=== PATIENT | female | born 1960 | race African-American/Black ===

== ENCOUNTER 2019-01-18 13:26 | Emergency (ER) | payer MEDICARE, OTHER ==
[~2019-01-18] VITALS: Ht 170.2 cm; Wt 108.9 kg
[~2019-01-18 13:26] MED LIST: CELEBREX200 MG ORAL; DOXYCYCLINE MO100 MG ORAL; HYDROCHLOROTHIA25 MG ORAL; METFORMIN HCL1000 M1 ORAL; PROMETHAZINE-C118 M1 ORAL
[2019-01-18 13:42] VITALS: BP 126/84
--- NOTE | 2019-01-18 13:47 | NUR ---
ED Nurse Note: Patient presents to ER due to cough, headache, chills for the past few days. Reports no N/V or D. Patient in electric wheelchair. Skin warm with good skin turgor.
--- NOTE | 2019-01-18 14:07 | NUR ---
ED Nurse Note: Patient awake, alert, oriented x 4. Equal hand resource center teacher notes. Reports no dizziness or drowsiness.
[2019-01-18] MEDS ORDERED: Albuterol/Ipratropium 3ml neb HHN ONE (14:30)
--- NOTE | 2019-01-18 14:42 | Diagnostic Imaging Report ---
Indication: Headache Technique: Contiguous 5 mm thick transaxial imaging of the head obtained in a Siemens Sensation [address] scanner. Soft tissue and bone windows generated. Automatic Exposure Control was utilized. Total Dose length Product (DLP): 1403.[address] Dose Index Volume (CTDIvol): 70.38 mGy Comparison: none Findings: The size and configuration of the cortical sulci, basal cisterns, and ventricles are within normal limits for age. There is no mass effect, midline shift, or edema identified. There is no evidence of acute hemorrhage or abnormal intra-axial or extra-axial fluid collections. The bones and soft tissues are unremarkable. Impression: No mass effect, edema or acute bleed. The CT scanner at [facility] [place] is accredited by the [employer] and the scans are performed using dose optimization techniques as appropriate to a performed exam including Automatic Exposure control.
[2019-01-18] MEDS ORDERED: TYLENOL EXTRA500 MG ORAL (15:26)
[2019-01-18] MEDS ORDERED: AMOXICILLIN500 MG ORAL (15:26)
[2019-01-18] MEDS ORDERED: PROAIR RESPICL90 MCG IH (15:26)
[2019-01-18] MEDS ORDERED: PROMETHAZINE-C118 M1 ORAL (15:26)
[2019-01-18 15:35] VITALS: BP 152/94
--- NOTE | 2019-01-18 15:35 | NUR ---
ED Nurse Note: Patient cleared to be d/c per ERMD. D/C instruction and prescription provided. Patient education done via discussion and handout, Patient verbalized understanding and agrees with plan. Patient leaving ER in electric wheelchair with her belongings. Wristband removed.
--- NOTE | 2019-01-18 16:17 | Emergency Room Report ---
History of Present Illness General Chief Complaint: Upper Respiratory Illness Source: Patient Present Illness HPI 58-year-old female presents ED for evaluation. Patient complaining of cough and congestion 5 days. History of COPD. Cough is productive with yellowish phlegm. Also complaining of headache. Sharp, right-sided, 8 out of 10, nonradiating. Denies photophobia or blurry vision. Denies nausea or vomiting. Denies neck Stiffness. Denies sick contacts or recent travel. No other aggravating relieving factors. Denies any other associated symptoms Allergies: Coded Allergies: PREDNISONE (Verified Allergy, Unknown, 12/08/18) Patient History Past Medical History: DM, HTN, asthma Past Surgical History: none Pertinent Family History: none Social History: Denies: smoking, alcohol use, drug use Last Menstrual Period: na Now: No Immunizations: UTD Reviewed Nursing Documentation: PMH: Agreed; PSxH: Agreed Nursing Documentation-PMH Past Medical History: No History, Except For Hx Hypertension: Yes Hx Asthma: Yes Hx Diabetes: Yes Review of Systems All Other Systems: negative except mentioned in HPI Physical Exam Vital Signs Date Time Temp Pulse Resp B/P (MAP) Pulse Ox O2 Delivery O2 Flow Rate FiO2 01/18/19 13:42 98.8 20 126/84 99 Room Air 01/18/19 13:42 67 01/18/19 14:37 21 Sp02 EP Interpretation: reviewed, normal General Appearance: no apparent distress, alert, GCS 15, non-toxic Head: normocephalic, atraumatic Eyes: bilateral eye normal inspection, bilateral eye PERRL ENT: hearing grossly normal, normal pharynx, no angioedema, normal voice Neck: full range of motion, supple, no meningismus, supple/symm/no masses Respiratory: chest non-tender, speaking full sentences, wheezing Cardiovascular #1: regular rate, rhythm, no edema Cardiovascular #2: 2+ carotid (R), 2+ carotid (L), 2+ radial (R), 2+ radial (L) , 2+ dorsalis pedis (R), 2+ dorsalis pedis (L) Gastrointestinal: normal bowel sounds, non tender, soft, non-distended, no guarding, no rebound Rectal: deferred Genitourinary: normal inspection, no CVA tenderness Musculoskeletal: back normal, gait/station normal, normal range of motion, non- tender Neurologic: alert, oriented x3, responsive, motor strength/tone normal, sensory intact, speech normal Psychiatric: judgement/insight normal, memory normal, mood/affect normal, no suicidal/homicidal ideation Reflexes: 3+ bicep (R), 3+ bicep (L), 3+ tricep (R), 3+ tricep (L), 3+ knee (R) , 3+ knee (L) Skin: normal color, no rash, warm/dry, well hydrated Lymphatic: no adenopathy Medical Decision Making Diagnostic Impression: Primary Impression: Headache Qualified Codes: R51 - Headache Additional Impression: COPD (chronic obstructive pulmonary disease) Qualified Codes: J44.9 - Chronic obstructive pulmonary disease, unspecified ER Course Hospital Course 58-year-old female presents to ED complaining of cough, SOB, headache Differential diagnoses include: URI, bronchitis, asthma/COPD, pneumonia Clinical course Patient placed on stretcher. After initial history and physical I ordered CT head and nebulizer treatment. CT head unremarkable. No meningeal signs. Cranial nerves II through XII intact. No focal deficits. Reassurance given Upon reassessment patient states cough and symptoms have improved. Findings consistent with bronchitis. Given history of COPD we'll discharge with antibiotics Discussed findings with patient. States she's had similar episode of headache several years ago and had MRI done which was negative. I explained to patient that she would likely benefit from neurology outpatient evaluation. States she will follow-up with her PMD Diagnosis - headache, COPD Stable and discharged home with prescriptions for Rx albuterol, proemthazine/ codeine, amoxicillin. Instructed to followup with PMD. Return to ED if symptoms recur or worsen CT/MRI/US Diagnostic Results CT/MRI/US Diagnostic Results : Imaging Test Ordered: CT Head Impression no acute process Last Vital Signs Date Time Temp Pulse Resp B/P (MAP) Pulse Ox O2 Delivery O2 Flow Rate FiO2 01/18/19 15:35 98.6 73 14 152/94 95 Room Air 01/18/19 14:45 21 Status: improved Disposition: HOME, SELF-CARE Condition: Stable Scripts Acetaminophen* (TYLENOL EXTRA STRENGTH*) 500 Mg Tablet 500 MG ORAL Q8H PRN for Prn Headache/Temp > 101, #30 TAB 0 Refills Prov: Soy Alejandra MD 01/18/19 Amoxicillin* (AMOXIL*) 500 Mg Capsule 500 MG ORAL THREE TIMES A DAY, #21 CAP Prov: Soy Alejandra MD 01/18/19 Codeine/Promethazine Hcl* (PROMETHAZINE-CODEINE SYRUP*) 118 Ml Syrup 5 ML ORAL Q6H PRN for For Cough, #118 ML 0 Refills Prov: Soy Alejandra MD 01/18/19 Albuterol Sulfate (Proair Respiclick) 90 Mcg Aer.pow.ba 90 MCG IH Q6HR, #1 UNIT Prov: Soy Alejandra MD 01/18/19 Referrals: NON PHYSICIAN (PCP) [facility]ira [facility]. [facility] Patient Instructions: Chronic Obstructive Pulmonary Disease Exacerbation, Easy- to-Read Soy Alejandra MD Jan 18, 2019 16:17
== END 2019-01-18 15:35 | disposition home or self-care (01) ==
LOC: EMR 14:25
DX: R51 Headache (principal); J44.9 Chronic obstructive pulmonary disease, unspecified; E11.9 Type 2 diabetes mellitus without complications; I10 Essential (primary) hypertension
CPT/HCPCS: 70450; 94640; 99284; J7620

== ENCOUNTER 2019-03-04 14:43 | Inpatient (IN) | payer MEDICARE, OTHER ==
[~2019-03-04] VITALS: Ht 170.2 cm; Wt 104.3 kg
[2019-03-04] MEDS: Albuterol/Ipratropium 3ml neb HHN SCH (01:34)
[~2019-03-04 14:43] MED LIST changes: +AMOXICILLIN500 MG ORAL; +PROAIR RESPICL90 MCG IH; +TYLENOL EXTRA500 MG ORAL
--- NOTE | 2019-03-04 15:12 | NUR ---
ED Nurse Note: pt walked into ed c/o sob x 2 days and progressively worsen, pt states she smokes everyday. noted pt sob, tachypnea, airway intact, LS= slight diminished lower lobes, vss, e3=090% on RA, pt started on o2 via nc 2L/min for comfort, ERMD aware. will cont monitor.
[2019-03-04] MEDS ORDERED: Solu-MEDROL 125mg Inj IVP ONE (15:15)
[2019-03-04] MEDS ORDERED: Albuterol ud Inhalation HHN ONE (15:15)
[2019-03-04] MEDS ORDERED: Ipratropium 0.02% Inh Soln 2.5ml UD HHN ONE (15:15)
[2019-03-04 15:20] VITALS: BP 151/76
--- NOTE | 2019-03-04 15:37 | Emergency Room Report ---
History of Present Illness General Chief Complaint: Dyspnea/Respdistress Source: Patient Present Illness HPI Patient presents with multiple complaints. She feels short of breath. She's been coughing up phlegm that is black and yellow. She's been wheezing but hasn' t used any nebulizer at home. She still smokes a cigarette a day. In addition she'll feels confused. She also has back pain that's on the right-hand side in the lower portion of her chest. It's a sharp hot poker that she feels. She denies vomiting or diarrhea. She denies dysuria. This been no chills that she has felt feverish at home.She rates the pain 10/10. She says it hurts her to sit and lay down, changing positions. No chest pain, palpitations, nausea, vomiting, diarrhea, dysuria, abdominal pain , she is states that she is depressed visual changes, headache. Because she has chronic pain. She denies suicidal or homicidal ideation. Allergies: Coded Allergies: PREDNISONE (Verified Allergy, Unknown, 12/08/18) Patient History Past Medical History: see triage record Social History: Reports: smoking, drug use - See tox screen Social History Narrative from home Last Menstrual Period: 12/2018 Now: No : 3 Para: 3 Reviewed Nursing Documentation: PMH: Agreed; PSxH: Agreed Nursing Documentation-PMH Hx Hypertension: Yes Hx Asthma: Yes Hx Diabetes: Yes Review of Systems All Other Systems: negative except mentioned in HPI Physical Exam Vital Signs Date Time Temp Pulse Resp B/P (MAP) Pulse Ox O2 Delivery O2 Flow Rate FiO2 03/04/19 15:00 98.1 70 18 93 Room Air 03/04/19 15:20 151/76 Sp02 EP Interpretation: reviewed, normal General Appearance: well appearing, GCS 15, non-toxic, mild distress, obese Head: normocephalic, atraumatic Eyes: bilateral eye normal inspection, bilateral eye PERRL, bilateral eye EOMI ENT: moist mucus membranes Neck: supple Respiratory: decreased breath sounds, expiration - Increased expiratory phase Cardiovascular #1: regular rate, rhythm Cardiovascular #2: 2+ radial (R) Gastrointestinal: normal inspection, normal bowel sounds, non tender, no mass, non-distended Musculoskeletal: gait/station normal, normal range of motion, no calf tenderness, Brian's Sign negative, other - Back tenderness with muscle spasm Neurologic: alert, motor strength/tone normal, DTRs symmetric, sensory intact, oriented - 2 Psychiatric: anxious - And she states she feels confused Skin: normal inspection, warm/dry Medical Decision Making Diagnostic Impression: Primary Impression: COPD exacerbation Additional Impression: Substance abuse ER Course Patient presents with dyspnea back pain confusion with history of COPD. I differential includes respiratory failure, COPD exacerbation, pneumonia, acute myocardial infarction, pulmonary embolus amongst others. Patient will be evaluated with EKG, chest x-ray and labs. CO2 monitoring will be initiated. The patient will receive breathing treatments and Solu Medrol. (She states she is allergic to prednisone and it causes her to break out however we are going to give her dose of Solu-Medrol IV.) EKG sinus rhythm and normal EKG. Chest x-ray poor inspiration increased cor. CO2 monitor 25-30. Slightly better with breathing treatment. This was obtained due to concern of CO2 retention and lethargy. Sleeping. Still with relative hypoxia and wheezing. Drug screen returns. Discussed getting help for cocaine and amphetamine abuse. Discussed with patient need for seeking help. Admit to observation telemetry Dr. Casillas. Laboratory Tests Test 03/04/19 15:30 03/04/19 16:20 03/04/19 16:30 White Blood Count 6.4 K/UL (4.8-10.8) Red Blood Count 4.72 M/UL (4.20-5.40) Hemoglobin 14.2 G/DL (12.0-16.0) Hematocrit 41.1 % (37.0-47.0) Mean Corpuscular Volume 87 FL (80-99) Mean Corpuscular Hemoglobin 30.1 PG (27.0-31.0) Mean Corpuscular Hemoglobin Concent 34.6 G/DL (32.0-36.0) Red Cell Distribution Width 12.7 % (11.6-14.8) Platelet Count 180 K/UL (150-450) Mean Platelet Volume 7.2 FL (6.5-10.1) Neutrophils (%) (Auto) 63.4 % (45.0-75.0) Lymphocytes (%) (Auto) 27.1 % (20.0-45.0) Monocytes (%) (Auto) 7.4 % (1.0-10.0) Eosinophils (%) (Auto) 0.7 % (0.0-3.0) Basophils (%) (Auto) 1.5 % (0.0-2.0) Prothrombin Time 10.4 SEC (9.30-11.50) Prothrombin Time INR 1.0 (0.9-1.1) PTT 29 SEC (23-33) Sodium Level 146 MMOL/L (136-145) H Potassium Level 3.9 MMOL/L (3.5-5.1) Chloride Level 110 MMOL/L (98-107) H Carbon Dioxide Level 27 MMOL/L (21-32) Anion Gap 9 mmol/L (5-15) Blood Urea Nitrogen 12 mg/dL (7-18) Creatinine 0.9 MG/DL (0.55-1.30) Estimate Glomerular Filtration Rate > 60 mL/min (>60) Glucose Level 170 MG/DL (74-106) H Lactic Acid Level 1.60 mmol/L (0.4-2.0) Calcium Level 10.3 MG/DL (8.5-10.1) H Total Bilirubin 0.1 MG/DL (0.2-1.0) L Aspartate Amino Transferase (AST) 15 U/L (15-37) Alanine Aminotransferase (ALT) 20 U/L (12-78) Alkaline Phosphatase 102 U/L (46-116) Total Creatine Kinase 152 U/L (26-308) Troponin I 0.008 ng/mL (0.000-0.056) Pro-B-Type Natriuretic Peptide 14 pg/mL (0-125) Total Protein 7.2 G/DL (6.4-8.2) Albumin 3.3 G/DL (3.4-5.0) L Globulin 3.9 g/dL Albumin/Globulin Ratio 0.8 (1.0-2.7) L Lipase 181 U/L (73-393) Serum Alcohol < 3 mg/dL Urine Color Yellow Urine Appearance Clear Urine pH 7 (4.5-8.0) Urine Specific [place] 1.015 (1.005-1.035) Urine Protein Negative (NEGATIVE) Urine Glucose (UA) Negative (NEGATIVE) Urine Ketones Negative (NEGATIVE) Urine Blood Negative (NEGATIVE) Urine Nitrite Negative (NEGATIVE) Urine Bilirubin Negative (NEGATIVE) Urine Urobilinogen 4 MG/DL (0.0-1.0) H Urine Leukocyte Esterase Negative (NEGATIVE) Urine Opiates Screen Negative (NEGATIVE) Urine Barbiturates Screen Negative (NEGATIVE) Phencyclidine (PCP) Screen Negative (NEGATIVE) Urine Amphetamines Screen Positive (NEGATIVE) H Urine Benzodiazepines Screen Negative (NEGATIVE) Urine Cocaine Screen Positive (NEGATIVE) H Urine Marijuana (THC) Screen Positive (NEGATIVE) H EKG Diagnostic Results Rate: normal Rhythm: NSR ST Segments: no acute changes Rhythm Strip Diag. Results EP Interpretation: yes Rhythm: NSR, no PVC's, no ectopy Chest X-Ray Diagnostic Results Chest X-Ray Diagnostic Results : Chest X-Ray Ordered: Yes # of Views/Limited/Complete: 1 View Indication: Shortness of Breath EP Interpretation: Yes Interpretation: no effusion, no pneumothorax, other - Poor inspiratory film and increased cardiac silhouette Impression: Other Electronically Signed by: Electronically signed by Simon Brock MD Last Vital Signs Date Time Temp Pulse Resp B/P (MAP) Pulse Ox O2 Delivery O2 Flow Rate FiO2 03/04/19 23:09 172/99 03/04/19 20:31 Room Air 03/04/19 20:00 96.7 89 18 95 03/04/19 15:42 2.0 Status: improved Disposition: PLACE IN OBSERVATION Condition: Serious Simon Brock MD March 04, 2019 15:37
[2019-03-04 16:04] LABS: ANION GAP 9 mmol/L (5-15); BLOOD UREA NITROGEN 12 mg/dL (7-18); CALCIUM 10.3 MG/DL (8.5-10.1); CARBON DIOXIDE 27 MMOL/L (21-32); CHLORIDE 110 MMOL/L (98-107); CREATININE 0.9 MG/DL (0.55-1.30); POTASSIUM 3.9 MMOL/L (3.5-5.1); SODIUM 146 MMOL/L (136-145)
[2019-03-04 16:15] LABS: ALANINE AMINOTRANSFERASE 20 U/L (12-78); ALBUMIN 3.3 G/DL (3.4-5.0); ALBUMIN/GLOBULIN RATIO 0.8 (1.0-2.7); ALKALINE PHOSPHATASE 102 U/L (46-116); ASPARTATE AMINO TRANSFERASE 15 U/L (15-37); BILIRUBIN,TOTAL 0.1 MG/DL (0.2-1.0); CREATINE KINASE 152 U/L (26-308)
[2019-03-04 16:21] LABS: BASOPHILS % (AUTO) 1.5 % (0.0-2.0); EOSINOPHILS % (AUTO) 0.7 % (0.0-3.0); HEMATOCRIT 41.1 % (37.0-47.0); HEMOGLOBIN 14.2 G/DL (12.0-16.0); LYMPHOCYTES % (AUTO) 27.1 % (20.0-45.0); MEAN CORPUSCULAR VOLUME 87 FL (80-99); MONOCYTES % (AUTO) 7.4 % (1.0-10.0); NEUTROPHILS % (AUTO) 63.4 % (45.0-75.0); PLATELET COUNT 180 K/UL (150-450); RED BLOOD COUNT 4.72 M/UL (4.20-5.40); RED CELL DISTRIBUTION WIDTH 12.7 % (11.6-14.8); WHITE BLOOD COUNT 6.4 K/UL (4.8-10.8)
--- NOTE | 2019-03-04 16:30 | NUR ---
ED Nurse Note:urine sent to labs
[2019-03-04 16:58] LABS: APPEARANCE,URINE CLEAR; BILIRUBIN, URINE NEGATIVE (NEGATIVE); GLUCOSE, URINE (UA) NEGATIVE (NEGATIVE); KETONES,URINE NEGATIVE (NEGATIVE); LEUKOCYTE ESTERASE ,URINE NEGATIVE (NEGATIVE); NITRITE,URINE NEGATIVE (NEGATIVE); PH,URINE 7 (4.5-8.0); PROTEIN,URINE NEGATIVE (NEGATIVE); UROBILINOGEN,URINE 4 MG/DL (0.0-1.0)
[2019-03-04 16:59] LABS: COLOR,URINE YELLOW
[2019-03-04 18:14] VITALS: BP 148/75
--- NOTE | 2019-03-04 18:15 | NUR ---
ED Nurse Note:called report to tele- pt. is stable to transfer up stairs
[2019-03-04 18:35] VITALS: BP 160/68
--- NOTE | 2019-03-04 18:35 | NUR ---
NURSE NOTES: Pt received from NANCY Bass alert and oriented x4 with no acute s/s of distress. IV site asymptomatic and patent, on saline lock. No wounds noted upon admission. Belongings signed with transferring RN -all with patient upon transfer. Bed in lowest position, bed alarm on. call light and belongings within reach. pvc monitor on - Sinus Rhythm, 88.
--- NOTE | 2019-03-04 19:25 | NUR ---
HAND-OFF: Report given to NANCY El. No acute s/s of distress noted.
[2019-03-04 20:00] VITALS: BP 172/99
--- NOTE | 2019-03-04 20:28 | NUR ---
NURSE NOTES: Recvd report from NANCY Montelongo. Pt is awake and alert AOX4, Pt is on room air, appears to have labored breathing on room air o2 sat 95%. Pt appears to be anxious and complaining of generalized pain. Admitting orders pending. Called dr Casillas to obtain admitting orders. Will continue to monitor.
[2019-03-04] MEDS ORDERED: LORazepam 1mg tab ORAL PRN (21:45)
[2019-03-04] MEDS: cefTRIAXone 1gm/D5W 55ml IVPB SCH ×2 (23:09)
[2019-03-05] VITALS: BP 143/87
[2019-03-05] MEDS: Albuterol/Ipratropium 3ml neb HHN SCH ×6 (03:27→23:18)
[2019-03-05 04:00] VITALS: BP 123/67
--- NOTE | 2019-03-05 07:38 | NUR ---
NURSE NOTES: pt awake alert, no distress. no sob. no c/o pain. call light within reach.bed in lowest position locked. will monitor.
[2019-03-05 07:53] VITALS: BP 130/70
[2019-03-05] MEDS: Heparin 5000 units/ml inj SUBQ SCH ×2 (08:15→21:00)
--- NOTE | 2019-03-05 09:43 | NUR ---
NURSE NOTES: rel;ayjulio to md glynn prednisone allergy Dr Melendez gave order for benadryl 50 mg q6 prn . pt aware of dexamethasone due later today.
--- NOTE | 2019-03-05 10:54 | NUR ---
CASE MANAGEMENT:REVIEW 58 YR OLD FEMALE PRESENTED TO ER CC: SOB SI: COPD EXACERBATION. 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
[2019-03-05 11:03] LABS: ANION GAP 9 mmol/L (5-15); BLOOD UREA NITROGEN 12 mg/dL (7-18); CALCIUM 9.5 MG/DL (8.5-10.1); CARBON DIOXIDE 25 MMOL/L (21-32); CHLORIDE 107 MMOL/L (98-107); CREATININE 0.9 MG/DL (0.55-1.30); POTASSIUM 3.8 MMOL/L (3.5-5.1); SODIUM 141 MMOL/L (136-145)
[2019-03-05] MEDS: DiphenhydrAMINE 50mg/ml Inj IVP PRN ×2 (11:22→18:07)
--- NOTE | 2019-03-05 11:47 | Diagnostic Imaging Report ---
Indication: Dyspnea Comparison: 12/08/2018 A single view chest radiograph was obtained. Findings: Cardiomegaly is present. Vascular congestion suspected with prominent vascularity. Bones are unremarkable. IMPRESSION: CHF suspected
[2019-03-05 12:00] VITALS: BP 125/78
[2019-03-05] MEDS: Dexamethasone 4mg/ml vial IVP SCH ×2 (12:17→18:07)
--- NOTE | 2019-03-05 14:38 | NUR ---
Social Service Note SW met with patient to address positive drug screen for meth and cocaine. Patient acknowledge positive screen by laughing it off and telling SW to just go through the motions and telling her drugs kill and to stop doing drug. Patient continued to be sarcastic as SW confirmed that those were good points and inquired if patient would be receptive to community resources for substance abuse. Patient states when she is ready to stop she will, patient states she has tried treatment and it wasn't for her and wasn't receptive to resources. Patient's t [place] [phone] is her emergency contact. Patient will return home upon discharge. Will monitor and be available as needed.
[2019-03-05 16:00] VITALS: BP 126/78
--- NOTE | 2019-03-05 17:00 | History and Physical Report ---
DATE OF ADMISSION: 03/04/2019 REASON FOR ADMISSION: COPD exacerbation. HISTORY OF PRESENT ILLNESS: This is a 58-year-old female, who presents with increasing shortness of breath. The patient is a chronic smoker. Notes that, she has coughed up very dark sputum. She has been wheezing and does have a Ventolin inhaler only. She still is smoking as described. The patient has been smoking for years. The patient notes that she has a prednisone allergy, but this is years ago. The patient was given Solu-Medrol in the emergency room and had no significant ill effects. No chest pain or palpitations. No nausea or vomiting. No ill contacts. The patient is now being admitted for COPD exacerbation. PAST MEDICAL HISTORY: Notable for what is described as chronic obstructive pulmonary disease and hypertension. MEDICATIONS: Reviewed. ALLERGIES: Reviewed. REVIEW OF SYSTEMS: All 10-points reviewed and otherwise negative. PHYSICAL EXAMINATION: GENERAL: A well-developed female and comfortable. VITAL SIGNS: Blood pressure 130/70, pulse 72, respiratory rate 18, sats 92%, and temperature 96.9. HEENT: Fairly negative. NECK: Supple. No adenopathy. LUNGS: Scattered wheezes. Moderate air entry. CARDIAC: S1, S2. Regular rate and rhythm without murmurs, rubs, or gallops. ABDOMEN: Soft, obese, and nontender. EXTREMITIES: No cyanosis, clubbing, or edema. NEUROLOGIC: Grossly nonfocal. LABORATORY DATA: Otherwise reviewed. EKG normal. The patient's laboratory data CBC normal. Chemistries sodium 146, calcium 10.3, and albumin is 3.3. IMPRESSION: 1. Chronic obstructive pulmonary disease with acute exacerbation. 2. Questionable prednisone allergy. 3. Hypertension. 4. Possible hypercalcemia. 5. Hypernatremia. 6. Hypertension. RECOMMENDATIONS: Supportive care. We will start oral. We will followup laboratories after intravenous hydration. A trial of Decadron and monitor for any type of allergic reaction. Likely, we will start chronic therapy with inhaled steroid if tolerated. The patient will need outpatient pulmonary function testing and further evaluation and will need further counseling on smoking cessation. Lamberto Casillas M.D. DR: KELLI JOB#: [id number] CC:
--- NOTE | 2019-03-05 19:11 | NUR ---
HAND-OFF: Report given to LEANNA CRUZ.
--- NOTE | 2019-03-05 19:20 | NUR ---
NURSE NOTES: Received report from Samantha Ling RN. Pt is resting in the bed receiving breathing treatment by RT. IV is patent and asymptomatic, NS is running at 100ml/h. Bed is in the lowest position,side rails up x2, and breaks are engaged. Call light and side table are w/in reach. Will continue to monitor.
[2019-03-05 20:00] VITALS: BP 156/88
[2019-03-05] MEDS: cefTRIAXone 1gm/D5W 55ml IVPB SCH ×2 (22:00)
[2019-03-06] VITALS: BP 150/82
--- NOTE | 2019-03-06 | NUR ---
NURSE NOTES: Pt was assisted to repositioned and sleeping in the bed. No acute distress at this time in RA. Will continue to monitor.
[2019-03-06] MEDS: DiphenhydrAMINE 50mg/ml Inj IVP PRN ×2 (00:27→06:40)
[2019-03-06] MEDS: Dexamethasone 4mg/ml vial IVP SCH ×3 (00:30→11:59)
[2019-03-06] MEDS: Albuterol/Ipratropium 3ml neb HHN SCH ×3 (03:00→11:04)
[2019-03-06 04:00] VITALS: BP 130/81
--- NOTE | 2019-03-06 04:13 | NUR ---
NURSE NOTES: Pt refused to have new bag of IV fluid, NS at 100ml/h, scheduled at 0345 by saying that she is tired to urinate d/t receiving IV fluid. CN made aware.
--- NOTE | 2019-03-06 07:15 | NUR ---
HAND-OFF: Report given to Samantha Ling RN.
[2019-03-06 08:00] VITALS: BP 132/81
[2019-03-06] MEDS: Heparin 5000 units/ml inj SUBQ SCH (08:12)
--- NOTE | 2019-03-06 08:16 | General Progress Note ---
Assessment/Plan Assessment/Plan: IMPRESSION: 1. Chronic obstructive pulmonary disease with acute exacerbation. 2. Questionable prednisone allergy. 3. Hypertension. 4. Possible hypercalcemia. 5. Hypernatremia. 6. Hypertension. PLAN steroid taper ? outpatient inhaler management start with anoro proair prn monitor for change Subjective Allergies: Coded Allergies: PREDNISONE (Verified Allergy, Unknown, 12/08/18) Subjective improved overall care noted tolerated decadron Objective Last 24 Hour Vital Signs Date Time Temp Pulse Resp B/P (MAP) Pulse Ox O2 Delivery O2 Flow Rate FiO2 03/06/19 08:12 81 18 Room Air 21 03/06/19 08:10 78 132/81 03/06/19 08:10 81 20 96 Room Air 21.0 03/06/19 08:00 97.9 78 18 132/81 (98) 91 03/06/19 04:00 97.9 86 18 130/81 (97) 91 03/06/19 03:49 85 03/06/19 03:26 Room Air 03/06/19 03:25 Room Air 03/06/19 00:02 97 03/06/19 00:00 98.2 98 18 150/82 (104) 93 03/05/19 23:26 101 20 99 Room Air 21 03/05/19 23:18 100 18 95 Room Air 21 03/05/19 21:00 Room Air 03/05/19 20:04 99 03/05/19 20:00 98.6 99 18 156/88 (110) 92 03/05/19 19:30 95 20 97 Room Air 21 03/05/19 19:19 94 18 95 Room Air 21 03/05/19 19:19 94 18 Room Air 21 03/05/19 16:48 91 20 95 Room Air 21 03/05/19 16:33 86 20 92 Room Air 21 03/05/19 16:13 89 03/05/19 16:00 97.5 80 18 126/78 (94) 92 03/05/19 13:12 92 20 97 Room Air 21 03/05/19 12:58 72 20 93 Room Air 21 03/05/19 12:00 97.3 74 18 125/78 (94) 92 03/05/19 11:37 69 Intake and Output 03/05/19 03/06/19 18:59 06:59 Intake Total 1340 ml 905 ml Balance 1340 ml 905 ml Intake Oral 840 ml IV Total 500 ml 905 ml # Voids 3 4 Laboratory Tests 03/05/19 10:30: Sodium Level 141, Potassium Level 3.8, Chloride Level 107, Carbon Dioxide Level 25, Anion Gap 9, Blood Urea Nitrogen 12, Creatinine 0.9, Estimat Glomerular Filtration Rate > 60, Glucose Level 244H, Calcium Level 9.5 Height (Feet): 5 Height (Inches): 7.00 Weight (Pounds): 230 Objective GENERAL: A well-developed female and comfortable. HEENT: Fairly negative. NECK: Supple. No adenopathy. LUNGS: reduced wheezes. Moderate air entry. CARDIAC: S1, S2. Regular rate and rhythm without murmurs, rubs, or gallops. ABDOMEN: Soft, obese, and nontender. EXTREMITIES: No cyanosis, clubbing, or edema. NEUROLOGIC: Grossly nonfocal. Lamberto Casillas MD March 06, 2019 08:16
[2019-03-06] MEDS ORDERED: ANORO ELLIPTA1 EACH HHN ×2 (09:13→09:14)
[2019-03-06] MEDS ORDERED: ALBUTEROL2.5 MG/3 M INH (09:14)
[2019-03-06] MEDS ORDERED: ZPACK (09:14)
[2019-03-06] MEDS ORDERED: DEXAMETHAS10 MG/1 M1 IV (09:16)
[2019-03-06] MEDS ORDERED: PROMETHAZINE-C118 M1 ORAL (09:17)
[2019-03-06 11:30] VITALS: BP 130/81
--- NOTE | 2019-03-06 12:49 | NUR ---
NURSE NOTES: pt left in stable condition, w all belongings. iv on right hand 20g intact, patent. pt instructed that infusion pharmacy will contact her for decadron iv. Arie from [facility] 1999 confirmed via phone call that they will set up iv.
--- NOTE | 2019-03-06 12:50 | NUR ---
NURSE NOTES: pt provided w bus tokens
--- NOTE | 2019-03-07 08:42 | Discharge Summary ---
Discharge Summary Discharge Summary _ DATE OF ADMISSION: 03/04/2019 DATE OF DISCHARGE: 03/06/2019 DISCHARGED BY: Dr. Casillas REASON FOR ADMISSION: 58 years old female with past medical history of COPD, chronic smoker, hypertension, presented to emergency department due to increased shortness of breath. Patient reported productive cough and wheezing. Patient was only using Ventolin inhaler at home. Patient reported prednisone allergy years ago, however she was given Solu- Medrol in the emergency room and had no side effects/evidence of allergic reaction. Patient denied chest pain or palpitations. No nausea or vomiting. No recent traveling. No ill contacts. Patient was admitted for COPD with acute exacerbation. HOSPITAL COURSE: Patient admitted to telemetry floor Supplemental oxygen provided as needed to keep pulse oximetry above 90%. Pulmonary toilet provided via nebulizing therapy with bronchodilators. Patient was started on IV Decadron with close monitoring on telemetry floor for any type of side effects/allergic reaction . Benadryl was on standby as needed. Patient was started on empiric antibiotic. CXR revealed mild CHF. Pro BNP 14. Antitussive provided as needed Patient was counseled on smoking cessation Patient declined nicotine patch. Pulse oximetry was stable on room air. Troponin negative. EKG revealed sinus rhythm, no acute ischemic changes. Blood pressure was managed with calcium channel tor. Hypernatremia resolved. Urine toxicology screen was positive for marijuana , cocaine and amphetamines. gospel worker met with patient to address positive drug screen for cocaine and amphetamine. Patient acknowledged positive screen, but was not receptive to community resources . patient stated that when she will be ready , she will stop herself . patient cousneled on smoking cessatio and abstinence from the street drugs. Patient clinically stabilized and was ready for discharge home . Upon discharge, patient started on maintenance inhaler with Anoro and continue Pro-air as rescue inhaler as needed. Steroids tapered. Patient to follow-up with the aerospace technician as outpatient for pulmonary function testand for further management. FINAL DIAGNOSES: COPD with acute exacerbation Hypertension Questionable prednisone allergy Hypernatremia - resolved Polysubstance abuse/cocaine, amphetamine, marijuana Tobacco abuse DISCHARGE MEDICATIONS: See Medication Reconciliation list. DISCHARGE INSTRUCTIONS: Patient was discharged home. Follow up with primary care provider in one week. I have been assigned to dictate discharge summary for this account. I was not involved in the patient's management. Morenita Vera NP March 07, 2019 08:42
== END 2019-03-06 12:51 | disposition home or self-care (01) | DRG 191 ==
LOC: EMR 15:54 → INTOOBSV 16:13 → 2E 16:13 → UNDOADMOB 16:13 → 2E 16:14 → OBSVTOIN 16:14 → EDBEDREQ 17:07 → 2E 17:56 → EDBEDREQ 18:23
DX: J44.1 Chronic obstructive pulmonary disease with (acute) exacerbation (principal); E87.0 Hyperosmolality and hypernatremia; F17.200 Nicotine dependence, unspecified, uncomplicated; I10 Essential (primary) hypertension; E83.52 Hypercalcemia; Z88.8 Allergy status to other drugs, medicaments and biological substances; F14.10 Cocaine abuse, uncomplicated; F15.10 Other stimulant abuse, uncomplicated; F12.10 Cannabis abuse, uncomplicated
CPT/HCPCS: 36415; 71045; 80048; 80053; 80307; 80329; 81003; 82550; 83605; 83690; 83880; 84484; 85025; 85610; 85730; 93005; 94640; 94664; 96361; 96365; 96375; 99284; J7620

== ENCOUNTER 2019-04-06 15:25 | Observation (INO) | payer MEDICARE, OTHER ==
[~2019-04-06] VITALS: Ht 170.2 cm; Wt 103.9 kg
[~2019-04-06 15:25] MED LIST changes: +ALBUTEROL2.5 MG/3 M INH; +ANORO ELLIPTA1 EACH HHN; +DEXAMETHAS10 MG/1 M1 IV; +ZPACK
--- NOTE | 2019-04-06 15:50 | NUR ---
ED Nurse Note: pt walked in c/o chronic low back pain and radiating to leg, pt reports it has been going on for a while, states she doesn't want xray but wants MRI done. ER provider at the bedside, will wait for further orders.
[2019-04-06 15:54] VITALS: BP 114/83
--- NOTE | 2019-04-06 16:28 | Emergency Room Report ---
History of Present Illness General Chief Complaint: Pain Source: Medical Record (Saima Busby) Present Illness HPI 58-year-old female presents to the emergency department complaining of 10 out of 10 exacerbation of her chronic low back pain with radiation down into the legs bilaterally with history of sciatica. Patient states that she had acute onset Tuesday afternoon after doing "a lot of laundry" patient denies appreciable trauma or fall. Patient denies saddle anesthesia but she reports moderate burning pain throughout the posterior back and radiation down into the groin and medial thigh area. Pain is exacerbated with walking and sitting. Patient denies rashes, erythema, warmth or lesions. MRI results from 12/12/2017 show : Mild rotatory scoliosis. Degenerative retrolisthesis of L4-5, anterior wedging of lower thoracic vertebral bodies, chronic degenerative changes, moderate 4 to 5 mm AP broad-based annular bulge into the foramina at L2-L3, L3-L4 has moderate to fairly extensive broad-based annular bulge extending into the foramina approximately 8 mm. Focal disc protrusions, moderately extensive facet joint/ligamentum flavum hypertrophy. Mild central spinal canal and moderate bilateral neural foraminal narrowing. Pt. with hx of Fibromyalgia, RA,COPD, DM, HTN, Dermatitis just to name a few. Also reports facial swelling with dental pain, poor dentition/loose tooth, and appt. on Tuesday with Dentist. Denies fevers, reports chills. Reports nasal congestion and itchy watery eyes bilaterally. Denies CP or palpitations. (Saima Busby) Allergies: Coded Allergies: PREDNISONE (Verified Allergy, Unknown, 12/08/18) Patient History Past Medical History: see triage record Pertinent Family History: none Now: No Reviewed Nursing Documentation: PMH: Agreed; PSxH: Agreed (Saima Busby) Nursing Documentation-PMH Past Medical History: No History, Except For Hx Hypertension: Yes Hx Asthma: Yes Hx Diabetes: Yes (Saima Busby) Review of Systems All Other Systems: negative except mentioned in HPI (Saima Busby) Physical Exam Vital Signs Date Time Temp Pulse Resp B/P (MAP) Pulse Ox O2 Delivery O2 Flow Rate FiO2 04/06/19 15:30 98.1 80 16 114/83 (93) 95 Room Air Sp02 EP Interpretation: reviewed, normal General Appearance: alert, GCS 15, non-toxic, moderate distress, obese, Chronically Ill Head: normocephalic, atraumatic Eyes: bilateral eye normal inspection, bilateral eye PERRL, bilateral eye EOMI , bilateral eye other - upper and lower lid swelling bilaterally. ENT: hearing grossly normal, no angioedema, normal voice, uvula midline, moist mucus membranes, nasal congestion, other - poor dentition, multiple missing teeth. the left fron tooth is very loose. no palpable abscesses in the gums. Neck: full range of motion, no meningismus, no bony tend Respiratory: lungs clear, normal breath sounds, speaking full sentences, wheezing - expiratory/ scant Cardiovascular #1: regular rate, rhythm, no edema, normal capillary refill Gastrointestinal: non tender, soft, non-distended, no guarding Genitourinary: normal inspection, no CVA tenderness Musculoskeletal: back normal, gait/station normal, normal range of motion, tender - TTP to the lumbosacral musculature and midline, no obvious deformities , no signs of infections. pt. ambulatory, difficult to find a POC. unable to tolerate straight leg raise Neurologic: alert, oriented x3, responsive, motor strength/tone normal, sensory intact, speech normal, grossly normal Psychiatric: judgement/insight normal, depressed affect Skin: normal color, no rash, warm/dry, well hydrated (Saima Busby) Medical Decision Making PA Attestation Dr. Brock is my supervising Physician whom patient management has been discussed with. (Saima Busby) Diagnostic Impression: Primary Impression: Exacerbation of chronic pain Additional Impressions: Fibromyalgia COPD (chronic obstructive pulmonary disease) Qualified Codes: J44.9 - Chronic obstructive pulmonary disease, unspecified Substance abuse Elevated erythrocyte sedimentation rate Elevated C-reactive protein ER Course 58-year-old female presents to the emergency department complaining of 10 out of 10 exacerbation of her chronic low back pain with radiation down into the legs bilaterally with history of sciatica. Patient states that she had acute onset Tuesday afternoon after doing "a lot of laundry" patient denies appreciable trauma or fall. Patient denies saddle anesthesia but she reports moderate burning pain throughout the posterior back and radiation down into the groin and medial thigh area. Pain is exacerbated with walking and sitting. Patient denies rashes, erythema, warmth or lesions. MRI results from 12/12/2017 show : Mild rotatory scoliosis. Degenerative retrolisthesis of L4-5, anterior wedging of lower thoracic vertebral bodies, chronic degenerative changes, moderate 4 to 5 mm AP broad-based annular bulge into the foramina at L2-L3, L3-L4 has moderate to fairly extensive broad-based annular bulge extending into the foramina approximately 8 mm. Focal disc protrusions, moderately extensive facet joint/ligamentum flavum hypertrophy. Mild central spinal canal and moderate bilateral neural foraminal narrowing. Pt. with hx of Fibromyalgia, RA,COPD, DM, HTN, Dermatitis just to name a few. Also reports facial swelling with dental pain, poor dentition/loose tooth, and appt. on Tuesday with Dentist. Denies fevers, reports chills. Reports nasal congestion and itchy watery eyes bilaterally. Denies CP or palpitations. Pt. presents to ED c/o LBP. Ddx considered: epidural abscess, fracture, sprain/strain, meningitis, spinal chord injury, sciatica, cauda equina, Pyelonephritis, renal calculi just to name a few. Vital signs reviewed and are WNL during ED visit. Pt. is afebrile with no signs of infection No new symptoms, and denies recent trauma. No saddle anesthesia noted, Pt. denies incontinence Neurovascular is intact ROM is limited due to pain *Pt. describes pain today as Severe and radiates across the lower back and down legs bilaterally, denies paresthesias or incontinence ORDERS: -CBC: WNL -CMP: WNL -ESR/ CRP: Elevated -UDS: positive for amphetamines, cocaine and THC -UA: unremarkable other than 4+ glucose. INTERVENTIONS: -[place] 5mg PO - Albuterol HHN -Vistaril PO DISPOSITION: at this time pt. will be admitted to Dr. Hart for fibromyalgia exacerbation/ intractable pain in a pt. with complex hx and illicit drug use. Dr. Hart agreed to admit the pt. and to continue pt. care management. Labs Test 04/06/19 17:35 04/06/19 17:45 Urine Color Pale yellow Urine Appearance Clear Urine pH 5 (4.5-8.0) Urine Specific [place] 1.010 (1.005-1.035) Urine Protein Negative (NEGATIVE) Urine Glucose (UA) 4+ (NEGATIVE) Urine Ketones Negative (NEGATIVE) Urine Blood Negative (NEGATIVE) Urine Nitrite Negative (NEGATIVE) Urine Bilirubin Negative (NEGATIVE) Urine Urobilinogen Normal MG/DL (0.0-1.0) Urine Leukocyte Esterase Negative (NEGATIVE) Urine Opiates Screen Negative (NEGATIVE) Urine Barbiturates Screen Negative (NEGATIVE) Phencyclidine (PCP) Screen Negative (NEGATIVE) Urine Amphetamines Screen Positive (NEGATIVE) Urine Benzodiazepines Screen Negative (NEGATIVE) Urine Cocaine Screen Positive (NEGATIVE) Urine Marijuana (THC) Screen Positive (NEGATIVE) White Blood Count 6.9 K/UL (4.8-10.8) Red Blood Count 5.19 M/UL (4.20-5.40) Hemoglobin 15.5 G/DL (12.0-16.0) Hematocrit 45.2 % (37.0-47.0) Mean Corpuscular Volume 87 FL (80-99) Mean Corpuscular Hemoglobin 29.8 PG (27.0-31.0) Mean Corpuscular Hemoglobin Concent 34.2 G/DL (32.0-36.0) Red Cell Distribution Width 12.7 % (11.6-14.8) Platelet Count 192 K/UL (150-450) Mean Platelet Volume 6.9 FL (6.5-10.1) Neutrophils (%) (Auto) 64.2 % (45.0-75.0) Lymphocytes (%) (Auto) 27.8 % (20.0-45.0) Monocytes (%) (Auto) 5.9 % (1.0-10.0) Eosinophils (%) (Auto) 0.7 % (0.0-3.0) Basophils (%) (Auto) 1.4 % (0.0-2.0) Erythrocyte Sedimentation Rate 67 MM/HR (0-30) Sodium Level 137 MMOL/L (136-145) Potassium Level 4.6 MMOL/L (3.5-5.1) Chloride Level 104 MMOL/L (98-107) Carbon Dioxide Level 23 MMOL/L (21-32) Anion Gap 10 mmol/L (5-15) Blood Urea Nitrogen 14 mg/dL (7-18) Creatinine 0.9 MG/DL (0.55-1.30) Estimat Glomerular Filtration Rate > 60 mL/min (>60) Glucose Level 123 MG/DL (74-106) Calcium Level 10.5 MG/DL (8.5-10.1) Total Bilirubin 0.3 MG/DL (0.2-1.0) Aspartate Amino Transf (AST/SGOT) 32 U/L (15-37) Alanine Aminotransferase (ALT/SGPT) 26 U/L (12-78) Alkaline Phosphatase 96 U/L (46-116) C-Reactive Protein, Quantitative 1.5 mg/dL (0.00-0.90) Total Protein 8.0 G/DL (6.4-8.2) Albumin 3.5 G/DL (3.4-5.0) Globulin 4.5 g/dL Albumin/Globulin Ratio 0.8 (1.0-2.7) (Saima Busby) ER Course Please see above note. Patient known to me and examined by me. I agree with the above history. Patient complaining of extreme pain daily and now not being able to cope. Almost suicidal, but denies. Has a psychiatrist. Not able to see her chronic pain MD for a long time. Intermittent use of drugs. Had a sponsor in the past, but not recently. Exam as above. MRI reviewed. No indication for imaging. Labs as below. Long discussion with patient. Admission for observation with psychiatric evaluation. Discussed with Dr. Casillas and Dr. Hart. Consultation with chronic pain specialist strongly recommended. I agree with treatment plan. (Simon Brock MD) Last Vital Signs Date Time Temp Pulse Resp B/P (MAP) Pulse Ox O2 Delivery O2 Flow Rate FiO2 04/06/19 15:54 98.1 81 16 114/83 95 Room Air (Saima Busby) Last Vital Signs Date Time Temp Pulse Resp B/P (MAP) Pulse Ox O2 Delivery O2 Flow Rate FiO2 04/07/19 00:30 98.0 75 20 132/77 (95) 97 04/07/19 00:09 Room Air 21 Status: improved (Simon Brock MD) Disposition: PLACE IN OBSERVATION Condition: Serious Referrals: Lamberto Casillas MD (PCP) Saima Busby Apr 06, 2019 16:28 Simon Brock MD Apr 07, 2019 02:17
[2019-04-06] MEDS ORDERED: HYDROcodone/Acetamin 5/325 tab ORAL ONE (16:45)
--- NOTE | 2019-04-06 16:45 | NUR ---
ED Nurse Note: pt continue c/o back pain, ER provider notified regarding pt's back pain.
[2019-04-06 18:03] LABS: BASOPHILS % (AUTO) 1.4 % (0.0-2.0); EOSINOPHILS % (AUTO) 0.7 % (0.0-3.0); HEMATOCRIT 45.2 % (37.0-47.0); HEMOGLOBIN 15.5 G/DL (12.0-16.0); LYMPHOCYTES % (AUTO) 27.8 % (20.0-45.0); MEAN CORPUSCULAR VOLUME 87 FL (80-99); MONOCYTES % (AUTO) 5.9 % (1.0-10.0); NEUTROPHILS % (AUTO) 64.2 % (45.0-75.0); PLATELET COUNT 192 K/UL (150-450); RED BLOOD COUNT 5.19 M/UL (4.20-5.40); RED CELL DISTRIBUTION WIDTH 12.7 % (11.6-14.8); WHITE BLOOD COUNT 6.9 K/UL (4.8-10.8)
[2019-04-06 18:06] LABS: APPEARANCE,URINE CLEAR; BILIRUBIN, URINE NEGATIVE (NEGATIVE); COLOR,URINE PALE YELLOW; GLUCOSE, URINE (UA) 4+ (NEGATIVE); KETONES,URINE NEGATIVE (NEGATIVE); LEUKOCYTE ESTERASE ,URINE NEGATIVE (NEGATIVE); NITRITE,URINE NEGATIVE (NEGATIVE); PH,URINE 5 (4.5-8.0); PROTEIN,URINE NEGATIVE (NEGATIVE); UROBILINOGEN,URINE NORMAL MG/DL (0.0-1.0)
[2019-04-06 18:30] LABS: ALANINE AMINOTRANSFERASE 26 U/L (12-78); ALBUMIN 3.5 G/DL (3.4-5.0); ALBUMIN/GLOBULIN RATIO 0.8 (1.0-2.7); ALKALINE PHOSPHATASE 96 U/L (46-116); ANION GAP 10 mmol/L (5-15); ASPARTATE AMINO TRANSFERASE 32 U/L (15-37); BILIRUBIN,TOTAL 0.3 MG/DL (0.2-1.0); BLOOD UREA NITROGEN 14 mg/dL (7-18); CALCIUM 10.5 MG/DL (8.5-10.1); CARBON DIOXIDE 23 MMOL/L (21-32); CHLORIDE 104 MMOL/L (98-107); CREATININE 0.9 MG/DL (0.55-1.30); POTASSIUM 4.6 MMOL/L (3.5-5.1); SODIUM 137 MMOL/L (136-145)
--- NOTE | 2019-04-06 19:10 | NUR ---
ED Nurse Note: report given to RN Judy and endorsed care. pt resting at this time, vss, resp even and unlabored on RA, all safety precautions in place, pt advised to notify staff if needed assist.
--- NOTE | 2019-04-06 19:15 | NUR ---
ED Nurse Note: RECIEVED REPORT FROM AM NURSE TO RESUME CARE, PT IN BED AWAKE, ALERT AND ORIENETD X4, PT HERE WITH CHRONIC BASCK PAIN FROM FIBROMYALGIA AND WAITING FOR POSSIBLE ADMISSION, PT HAS BEEN MEDICATED BUT STATES PAIN REMAINS AT 9/10, NO CP, NO SOB, PT IA AMBULATING TO BATHROOM IN DEPARTMENT WITH STEADY GAIT, WILL RESUME CARE ORDERED AND CLOSELY MONITOR.
[2019-04-06 20:00] VITALS: BP 119/88
[2019-04-06] MEDS ORDERED: Albuterol ud Inhalation HHN ONE (20:15)
[2019-04-06 22:00] VITALS: BP 127/81
[2019-04-06] MEDS ORDERED: DiphenhydrAMINE 50mg/ml Inj IVP ONE (22:00)
--- NOTE | 2019-04-06 22:15 | NUR ---
ED Nurse Note: PT CONTINUES TO REST INB ED,A WAKE AND ALERT, CONTINUES TO C/O PAIN AND ASKING FOR MEDS, IS AWARE, DECIDING IF PT WILL BE ADMITTED OR DISCHARGED, NO NEW MED ORDERS GIVEN AT THIS TIME, V/S STABLE, WILL CONTINUE TO CLOSELY MONITOR WHILE WAITING FOR DISPOSITION INFORMATION, NAD NOTED AT THIS TIME.
--- NOTE | 2019-04-06 23:50 | NUR ---
ED Nurse Note: PT BEING ADMITTED TO FLOOR UNIT, PT IS AWAKE, LAERT AND [id number] X 4, AMBULATORY, GIVEN MEDS FOR ITCHING, MEDS EFFECTIVE, PAIN AT 8/10 BUT PT IS SLEEPING WHEN NURSE ENTERS ROOM, SALINE LOCK INTACT AND PATENT, REPORT GIVEN TO FLOOR NURSE NANCY SMITH, BELONGING LIST COMPLETED AND SIGNED BY NANCY REESE, PT BEING TAKEN TO UNIT VIA GURNEY WITH ER-TE[facility], NAD NOTED AND PT HAS ALL BELONGINGS WITH HER.
[2019-04-07 00:30] VITALS: BP 132/77
--- NOTE | 2019-04-07 00:30 | NUR ---
NURSE NOTES: Bed in low position, call light within reach, side rails up x2. Patient gets up to bathroom on her own, steady gait. Uses cane as needed.
--- NOTE | 2019-04-07 00:30 | NUR ---
NURSE NOTES: Patient admitted at this time, via erney. Walked to bed, with aid of cane. Alysa fairly well. VSS. Reviewed meds with patient. . States she forgot her med list at home. Uses [facility] on [address]. She's currently only taking the following meds and she's not sure of dosages: Acetaminophen Albuterol inhaler Anoro inhaler Celebrex Phenergan cough syrup Hydrochlorothiazide Metformin Vascepa Farxiga Simvastatin Lisinopril Baclofen Voltaren gel
--- NOTE | 2019-04-07 01:00 | NUR ---
NURSE NOTES: Patient watching TV, dozing on and off.
--- NOTE | 2019-04-07 01:20 | NUR ---
NURSE NOTES: Placed phone call and left message for Dr Hart, (Dr Love covering) for admission orders.
--- NOTE | 2019-04-07 02:30 | NUR ---
NURSE NOTES: Patient asleep.
--- NOTE | 2019-04-07 03:41 | NUR ---
NURSE NOTES: Patient sleeping on and off. Placed call to physician for admission orders, left message for Dr Troncoso (covering for Dr Hart) Addendum: 04/07/19 at 0403 by Nicole Funes RN MD orders received and acknowledged.
[2019-04-07] MEDS ORDERED: DiphenhydrAMINE 50mg/ml Inj IVP PRN (03:45)
[2019-04-07 05:45] VITALS: BP 121/70
[2019-04-07] MEDS ORDERED: NovoLOG Insulin Flexpen SUBQ SCH (06:30)
[2019-04-07] MEDS: HYDROcodone/Acetamin 10/325 tab ORAL PRN ×2 (06:38→22:37)
[2019-04-07 08:00] VITALS: BP 95/58
[2019-04-07] MEDS: Albuterol/Ipratropium 3ml neb HHN SCH ×3 (08:00→19:14)
[2019-04-07] MEDS: NovoLOG Insulin Flexpen SUBQ SCH ×4 (08:16→21:52)
--- NOTE | 2019-04-07 08:18 | NUR ---
NURSE NOTES: Received report from Nicole CRUZ. Patient is awake alert and oriented x4, no acute distress noted but patient is reporting pain "all over my body". Patient states the pain medications she received this morning helped "a little", educated patient that I will administer PRN pain medication when due, patient in agreement. Side rails upx3, bed low and locked, call light in reach. Will continue to monitor.
[2019-04-07 12:00] VITALS: BP 114/71
--- NOTE | 2019-04-07 14:00 | History and Physical Report ---
DATE OF ADMISSION: 04/06/2019 CHIEF COMPLAINT: Back pain. HISTORY OF PRESENT ILLNESS: The patient is a 58-year-old female. She has a history of osteoarthritis, chronic lower back pain, and rheumatoid arthritis. She presented from home with complaints of severe intractable pain radiating to her leg. According to the patient, the pain is chronic, but has recently gotten more severe. She denies any fevers or chills. She has had no trauma. In the emergency room, she was noted to have an urine tox screen that was positive for amphetamines, cocaine, and opiates. Pain cannot be controlled with IV and oral pain medications, she is therefore admitted for further evaluation and care. PAST MEDICAL HISTORY: Significant for the above. She has history of hypertension and diabetes. PAST SURGICAL HISTORY: Includes back and knee surgery. CURRENT MEDICATIONS: Reconciled and reviewed. ALLERGIES: Include prednisone. FAMILY HISTORY: Noncontributory. SOCIAL HISTORY: There is no known history of alcohol or smoking. The patient uses multiple substances and illicit drugs. REVIEW OF SYSTEMS: GENERAL: No fever or chills. HEENT: No headaches or visual changes. CARDIOPULMONARY: No chest pain or shortness of breath. GASTROINTESTINAL: No nausea or vomiting. GENITOURINARY: No urgency or frequency. MUSCULOSKELETAL: Severe generalized leg and back pain. NEUROLOGIC: No evidence of seizures. PHYSICAL EXAMINATION: VITAL SIGNS: Temperature 98 degrees, blood pressure 100/76, pulse 70, and respirations 20. GENERAL: The patient is well developed, no apparent distress. HEART: Regular rate and rhythm. LUNGS: Clear. ABDOMEN: Soft, nontender, nondistended. EXTREMITIES: Without clubbing, cyanosis, or edema. LABORATORY DATA: UA was negative. White count 7, hemoglobin 15, and platelets of 192. Sodium 137, potassium 4.6, BUN 14, creatinine 0.9. C-reactive protein is 1.5. UA was clear. Toxicology screen was positive for amphetamines, cocaine, and marijuana. ASSESSMENT: This is a pleasant 58-year-old female with a history of RA, COPD, hypertension, diabetes, and chronic back pain admitted with intractable pain. PLAN: IV pain medications and anxiolytics. Continue outpatient cardiac and diabetic regimen. PT and OT evaluations. The patient will be discharged once her pain is better controlled on oral medications. Rubens Hart M.D. DR: YEHUDA JOB#: [id number] CC:
[2019-04-07 16:00] VITALS: BP 136/72
--- NOTE | 2019-04-07 19:36 | NUR ---
HAND-OFF: Report given to Nicole CRUZ. Patient is in stable condition.
--- NOTE | 2019-04-07 19:40 | NUR ---
NURSE NOTES: Received report from NANCY Navarrete. Patient in stable condition. Bed in low position, locked, side rails up x2, call light within reach. Sleeping on and off, no complains of pain at this time. Will continue to monitor.
[2019-04-07 20:00] VITALS: BP 138/74
[2019-04-07] MEDS: Heparin 5000 units/ml inj SUBQ SCH (21:51)
[2019-04-08] VITALS: BP 125/73
[2019-04-08] MEDS: Albuterol/Ipratropium 3ml neb HHN SCH ×3 (00:50→11:54)
[2019-04-08 04:00] VITALS: BP 134/87
[2019-04-08] MEDS: NovoLOG Insulin Flexpen SUBQ SCH ×2 (06:33→11:30)
--- NOTE | 2019-04-08 06:42 | NUR ---
NURSE NOTES: Right hand saline lock discontinued, pt states it was painful. Not patent. Discussed need for IV access while patient is in the hospital, patient refuses for now, states she would prefer it was done later.
--- NOTE | 2019-04-08 07:30 | NUR ---
HAND-OFF: Report given to NANCY Navarrete.
--- NOTE | 2019-04-08 07:45 | NUR ---
NURSE NOTES: Received report from Nicole CRUZ. Patient is awake alert and oriented x4, no acute distress noted. Reporting some mild stomach upset, but no other pain. Not requesting pain medication at this time. States "I'm feeling much better." CT scheduled for today. Patient updated on plan of care. No IV access, patient refuses to allow RN to insert another IV, educated on risks and benefits. Side rails upx3, bed low and locked, call light in reach. Will continue to monitor.
[2019-04-08 08:00] VITALS: BP 110/55
[2019-04-08] MEDS: Heparin 5000 units/ml inj SUBQ SCH (09:00)
--- NOTE | 2019-04-08 09:07 | NUR ---
CHARGE NURSE NOTES: cT scan down, Pt made aware & she will just do it as outpatient & will go home instead. Dr Hart made aware.
[2019-04-08] MEDS ORDERED: NORCO 10-325 T1 EACH ORAL (11:13)
--- NOTE | 2019-04-08 11:45 | NUR ---
NURSE NOTES: Patient refused accucheck and mealtime insulin. Patient would still like to eat lunch before being discharged. Educated on risks of hyperglycemia and insulin refusal, patient reports understanding.
[2019-04-08 12:00] VITALS: BP 110/67
--- NOTE | 2019-04-08 12:46 | NUR ---
NURSE NOTES: Patient discharged. No acute distress no discharge. Patient provided with discharge education and handouts, reviewed handouts with patient and patient reported understanding of provided teaching. Dr. Hart aware patient was unable to have CT scan today, stated ok to discharge patient and arrange for follow up CT outpatient with Dr. Casillas. Patient stated she will follow up with Dr. Casillas tomorrow. Patient given Rx for pain medication. Belongings signed for. Patient escorted off unit, ambulatory with steady gait, accompanied by RN and patient's family member to private vehicle.
--- NOTE | 2019-04-08 20:45 | Discharge Summary ---
DATE OF ADMISSION: 04/06/2019 DATE OF DISCHARGE: 04/08/2019 DISCHARGE DIAGNOSES: 1. Intractable back pain. 2. History of rheumatoid arthritis. 3. Osteoarthritis. 4. Hypertension and diabetes. DISCHARGE DIAGNOSES: 1. Intractable back pain. 2. History of rheumatoid arthritis. 3. Osteoarthritis. 4. Hypertension and diabetes. HOSPITAL COURSE: The patient was admitted with complaints of intractable back pain. Pain could not be controlled except without intravenous pain medications. She received IV pain medications with rest and pain control though within 24 hours, the patient's pain was significantly better. She was discharged home in stable condition. She will follow up with her PMD. DISCHARGE MEDICATIONS: Please see discharge medication list for discharge medications. DIET: Diabetic. ACTIVITIES: Ad-sylvia. FOLLOWUP: The patient will follow up in one to two days with her PMD. Rubens Hart M.D. DR: ELOISA JOB#: [id number] CC:
== END 2019-04-08 12:30 | disposition home or self-care (01) ==
LOC: EMR 15:53 → 3E 18:15 → EDBEDREQ 18:30
DX: M54.5 Low back pain (principal); M79.7 Fibromyalgia; M06.9 Rheumatoid arthritis, unspecified; J44.9 Chronic obstructive pulmonary disease, unspecified; M19.90 Unspecified osteoarthritis, unspecified site; E11.9 Type 2 diabetes mellitus without complications; I10 Essential (primary) hypertension; R22.0 Localized swelling, mass and lump, head; F15.10 Other stimulant abuse, uncomplicated; F14.10 Cocaine abuse, uncomplicated; F12.10 Cannabis abuse, uncomplicated; M41.9 Scoliosis, unspecified; Z88.8 Allergy status to other drugs, medicaments and biological substances
CPT/HCPCS: 36415; 80053; 80307; 81003; 82962 ×2; 85025; 85651; 86140; 87081 ×3; 94640 ×3; 94664 ×2; 96374; 99285; G0378 ×2; J1644; J1815; J7620

== ENCOUNTER 2019-12-07 10:40 | Emergency (ER) | payer MEDICARE, OTHER ==
[~2019-12-07] VITALS: Ht 170.2 cm; Wt 104.3 kg
[~2019-12-07 10:40] MED LIST changes: +NORCO 10-325 T1 EACH ORAL
[2019-12-07] MEDS ORDERED: fentaNYL 100 mcg/2 mL IV ONE ×2 (11:00→13:45)
--- NOTE | 2019-12-07 11:00 | NUR ---
ED Nurse Note: Pt arrived to ED from home d/t abdominal pain, generalized body pain on RT side. Placed on bed and gown; hooked to night monitor.
[2019-12-07] MEDS: Albuterol/Ipratropium 3ml neb HHN SCH ×2 (11:02→11:03)
--- NOTE | 2019-12-07 11:05 | NUR ---
ED Nurse Note: RT on bedside.
--- NOTE | 2019-12-07 11:06 | NUR ---
ED Nurse Note: X-ray on bedside.
--- NOTE | 2019-12-07 11:06 | Emergency Room Report ---
History of Present Illness General Chief Complaint: To Be Triaged Source: Patient Present Illness HPI Patient is a 59-year-old female with multiple medical history including COPD, CHF, diabetes, chronic pain disorder, obesity, fibromyalgia and anemia who presents to the ER with several complaints. Patient complains of abdominal pain for the past several days which is intermittent and has been getting worse. She states that it is a sharp cramping associated with nausea and nonbilious nonbloody vomitus. She denies any diarrhea or constipation. She denies any dysuria or hematuria. Patient also complains of shortness of breath. She states that this is consistent with her COPD. She states that she needs nebulizer treatments. She denies any chest pain. She denies any fever or chills. Patient denies any rash. Allergies: Coded Allergies: PREDNISONE (Verified Allergy, Unknown, 12/08/18) Patient History Reviewed Nursing Documentation: PMH: Agreed; PSxH: Agreed Nursing Documentation-PMH Hx Hypertension: Yes Hx Asthma: Yes Hx COPD: Yes Hx Diabetes: Yes Hx Gastrointestinal Problems: No Hx Neurological Problems: No Review of Systems All Other Systems: negative except mentioned in HPI Physical Exam Sp02 EP Interpretation: reviewed - nebulizer treatment ordered., normal General Appearance: alert, GCS 15, non-toxic, other - Tearful, poorly groomed. 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 Patient reports improvement of abdominal pain and her shortness of breath after breathing treatments. Patient was given 4 mg of Zofran IV as well as 50 mcg of fentanyl IV. Patient was also given nebulizer treatments. She is ambulating to the restroom and appears to be in no acute distress. Patient reevaluated at 1:25 PM. Patient still reports improvement of symptoms. She is in no acute respiratory distress. She is satting 96% on room air. Her abdominal pain has greatly improved. She is tolerating p.o. Patient states that she will follow-up with her primary care physician for further treatment and evaluation. After discussing risks and benefits of further diagnostics, treatment plans, as well as indications for and risks of admission , the patient is agreeable to being discharged home. I have explained that their evaluation and treatment in the emergency department today is an important step towards them achieving better health but that their evaluation today is not intended to replace further evaluation and treatment by a physician in their local clinic. I have explained that while the current findings suggest no immediate life threatening emergency they will require further evaluation and treatment by a physician of their choice in their area. They understand that it will be necessary for them to review the final reports of their ED visit with their clinic physician. We have reviewed indications for return to the Emergency Department. I have explained that additional time may need to pass and/or additional testing as an outpatient may be necessary before a definitive diagnosis can be made. They tell me they are willing to follow up as instructed within the timeframe I recommend. They appear to understand what we discussed. Additionally they understand that if they are unable to be seen by an outpatient physician they are welcome, and in fact should, return to the Emergency Department for a repeat evaluation. The patient is stable at time of discharge. Disposition: HOME, SELF-CARE Condition: Improved Scripts Ondansetron (Zofran) 4 Mg Tablet 4 MG ORAL Q8H PRN for Nausea & Vomiting, #10 TAB 0 Refills Prov: Kyra Romero M.D. 12/07/19 Albuterol Sulfate* (ALBUTEROL SULFATE MDI*) 8.5 Gm Hfa.aer.ad 2 PUFF INH Q4H PRN for cough/wheezing, #1 EA 0 Refills Prov: Kyra Romreo M.D. 12/07/19 Tramadol Hcl (ULTRAM*) 50 Mg Tablet 50 MG ORAL Q4H, #30 TAB 0 Refills Prov: Kyra Romero M.D. 12/07/19 Additional Instructions: Patient to follow-up with her primary care physician for further treatment and evaluation. Kyra Romero M.D. Dec 07, 2019 11:06
[2019-12-07 11:10] VITALS: BP 120/84
[2019-12-07 11:20] LABS: BASOPHILS % (AUTO) 1.2 % (0.0-2.0); EOSINOPHILS % (AUTO) 1.5 % (0.0-3.0); HEMATOCRIT 45.9 % (37.0-47.0); LYMPHOCYTES % (AUTO) 21.2 % (20.0-45.0); MEAN CORPUSCULAR VOLUME 88 FL (80-99); MONOCYTES % (AUTO) 7.3 % (1.0-10.0); NEUTROPHILS % (AUTO) 68.9 % (45.0-75.0); PLATELET COUNT 218 K/UL (150-450); RED BLOOD COUNT 5.19 M/UL (4.20-5.40); RED CELL DISTRIBUTION WIDTH 12.3 % (11.6-14.8); WHITE BLOOD COUNT 6.4 K/UL (4.8-10.8)
--- NOTE | 2019-12-07 11:21 | NUR ---
ED Nurse Note: ABG done performed by RT.
--- NOTE | 2019-12-07 11:25 | NUR ---
ED Nurse Note: Pt went on CT via g[facility]marci accompanied by andrzej.
[2019-12-07 11:28] LABS: ANION GAP 13 mmol/L (5-15); BLOOD UREA NITROGEN 13 mg/dL (7-18); CALCIUM 10.3 MG/DL (8.5-10.1); CARBON DIOXIDE 24 MMOL/L (21-32); CHLORIDE 103 MMOL/L (98-107); CREATININE 0.9 MG/DL (0.55-1.30); POTASSIUM 3.4 MMOL/L (3.5-5.1); SODIUM 140 MMOL/L (136-145)
--- NOTE | 2019-12-07 11:34 | NUR ---
ED Nurse Note: Pt returned from CT, on stable condition.
[2019-12-07 11:39] LABS: ALANINE AMINOTRANSFERASE 20 U/L (12-78); ALBUMIN 3.7 G/DL (3.4-5.0); ALBUMIN/GLOBULIN RATIO 0.8 (1.0-2.7); ALKALINE PHOSPHATASE 111 U/L (46-116); ASPARTATE AMINO TRANSFERASE 16 U/L (15-37); BILIRUBIN,TOTAL 0.3 MG/DL (0.2-1.0)
[2019-12-07 12:10] VITALS: BP 114/68
--- NOTE | 2019-12-07 12:25 | Diagnostic Imaging Report ---
Indication: Dyspnea Comparison: 03/04/2019 A single view chest radiograph was obtained. Findings: Lung volumes are low. The interstitium and pulmonary vascularity appear mildly prominent. Heart size is also mildly increased. Bones are unremarkable. IMPRESSION: Suspected mild pulmonary vascular congestion. Study limited by low lung volumes. Please correlate clinically.
--- NOTE | 2019-12-07 12:30 | Diagnostic Imaging Report ---
INDICATION: Abdominal pain TECHNIQUE: Continuous helical transaxial imaging of the abdomen and pelvis was obtained from the lung bases to the pubic symphysis. No intravenous contrast was administered. Coronal 2-D reformats were also obtained. Automatic Exposure Control was utilized. Total Dose length Product (DLP): [address] Dose Index Volume (CTDIvol): 28.7 mGy Comparison: none FINDINGS: Lungs: Mild bronchiectasis noted at the lung bases. Reticular and groundglass opacities are noted at the lung bases mild in degree. Small hiatal hernia is present.. Liver: Unremarkable Gallbladder/biliary system: No gallstones are identified. There is no evidence of intrahepatic or extrahepatic biliary ductal dilatation. Spleen: Unremarkable Pancreas: Unremarkable Kidneys: There is a punctate 1 to 2 mm nonobstructive stone in the lower pole the right kidney. There is no hydronephrosis. The urinary bladder is unremarkable.. Adrenal glands: There is a 3.5 x 3 cm left adrenal mass containing macroscopic fat consistent with a myelolipoma. The right adrenal gland is unremarkable. Bowel: The appendix is normal. Bowel gas pattern is nonobstructive. Uterus/ovaries: The uterus is enlarged and heterogeneous. There are calcifications are present in the left side of the uterus likely associated with the fibroids. Neither ovary is appreciated. Aorta/IVC: Mild mural calcium noted within the wall of the aorta and iliac arteries. There is no aneurysm. Peritoneum: There is no free fluid. Bones: There is narrowing of intervertebral discs and accompanying endplate osteophyte formation. Hypertrophied facet joints also demonstrated. IMPRESSION: 1 to 2 mm nonobstructive stone within the lower pole the right kidney. 3.5 x 3 cm left adrenal myelolipoma. Normal appendix Uterine fibroid suspected. Atherosclerotic vascular disease Chronic changes at both lung bases as described above. Small hiatal hernia. Note: Evaluation of solid organs is limited on non contrast imaging. The CT scanner at [facility] is accredited by the [employer] and the scans are performed using dose optimization techniques as appropriate to a performed exam including Automatic Exposure control.
[2019-12-07 13:07] LABS: APPEARANCE,URINE CLEAR; BILIRUBIN, URINE NEGATIVE (NEGATIVE); COLOR,URINE YELLOW; GLUCOSE, URINE (UA) 4+ (NEGATIVE); KETONES,URINE 1+ (NEGATIVE); LEUKOCYTE ESTERASE ,URINE NEGATIVE (NEGATIVE); NITRITE,URINE NEGATIVE (NEGATIVE); PH,URINE 5 (4.5-8.0); PROTEIN,URINE NEGATIVE (NEGATIVE); UROBILINOGEN,URINE 1 MG/DL (0.0-1.0)
[2019-12-07] MEDS ORDERED: ALBUTEROL SULF8.5 GM INH (13:20)
[2019-12-07] MEDS ORDERED: ZOFRAN4 MG ORAL (13:20)
[2019-12-07] MEDS ORDERED: ULTRAM50 MG ORAL (13:20)
[2019-12-07 14:13] VITALS: BP 114/68
--- NOTE | 2019-12-07 14:13 | NUR ---
ER DISCHARGE NOTE: Patient is cleared to be discharged per Dr. Romero, pt is aox4, on room air, with stable vital signs. pt was given dc and prescription instructions, pt was able to verbalize understanding, pt id band and iv site removed without complications. Pt took all belongings. Pt left using her electronic wheelchair.
== END 2019-12-07 14:13 | disposition home or self-care (01) ==
LOC: EMR 11:20
DX: R10.9 Unspecified abdominal pain (principal); Z88.8 Allergy status to other drugs, medicaments and biological substances; J44.9 Chronic obstructive pulmonary disease, unspecified; E11.9 Type 2 diabetes mellitus without complications; I50.9 Heart failure, unspecified; M79.7 Fibromyalgia
CPT/HCPCS: 36415; 36600; 71045; 74176; 80053; 80307; 81003; 82803; 82962; 83605; 83690; 83735; 83880; 84484; 85025; 85610; 85730; 86710; 87040; 93005; 96374; 96375; 99284; J2405; J3010; J7620

== ENCOUNTER 2020-01-16 12:50 | Emergency (ER) | payer MEDICARE, OTHER ==
[~2020-01-16] VITALS: Ht 170.2 cm; Wt 108.9 kg
[~2020-01-16 12:50] MED LIST changes: +ALBUTEROL SULF8.5 GM INH; +ULTRAM50 MG ORAL; +ZOFRAN4 MG ORAL
--- NOTE | 2020-01-16 13:35 | NUR ---
ED Nurse Note: Pt walked into ED w/ c/o R foot pain 10/10 and pt is crying. Pt R foot is swollen and red. Pt has history of diabetes and fibromyalgia. Pt is alert and orientedx4, ambulatory. Pt denies nausea, vomiting.
[2020-01-16 13:42] VITALS: BP 140/73
--- NOTE | 2020-01-16 14:00 | Emergency Room Report ---
History of Present Illness General Chief Complaint: Skin Rash/Abscess Present Illness HPI 59-year-old female with history of recurrent cellulitis of feet due to picking on them, also type 2 diabetes taking medication. Here complaining of swelling and pain in left foot x2 days. Left toe is minimally warm to touch however denies any fall or injury. Has not taken medication for symptom relief. Patient is afebrile. Denies any recent travel, cough and congestion, no other associate symptoms. Is in no apparent distress. Has not followed up with backing in machine tender yet. COVID-19 risk:Travel to affect: No Has patient experienced [place]: No Allergies: Coded Allergies: PREDNISONE (Verified Allergy, Unknown, 12/08/18) Patient History Past Medical History: see triage record Past Surgical History: none Pertinent Family History: none Now: No Immunizations: UTD Reviewed Nursing Documentation: PMH: Agreed; PSxH: Agreed Nursing Documentation-PMH Hx Hypertension: Yes - Fibromyalgia Hx Asthma: Yes Hx COPD: Yes Hx Diabetes: Yes Hx Gastrointestinal Problems: No Hx Neurological Problems: No Review of Systems All Other Systems: negative except mentioned in HPI Physical Exam Vital Signs Date Time Temp Pulse Resp B/P (MAP) Pulse Ox O2 Delivery O2 Flow Rate FiO2 01/16/20 13:11 97.7 72 16 136/79 (98) 98 Room Air Sp02 EP Interpretation: reviewed, normal General Appearance: no apparent distress, alert, GCS 15, non-toxic Head: normocephalic, atraumatic Eyes: bilateral eye normal inspection, bilateral eye PERRL ENT: hearing grossly normal, normal pharynx, no angioedema, normal voice Neck: full range of motion, supple, no meningismus, supple/symm/no masses Respiratory: chest non-tender, lungs clear, normal breath sounds, no rhonchi, no retraction, no wheezing, speaking full sentences Cardiovascular #1: regular rate, rhythm, no edema, no murmur Cardiovascular #2: 2+ dorsalis pedis (R), 2+ dorsalis pedis (L) Gastrointestinal: normal bowel sounds, non tender, soft, non-distended, no guarding, no rebound Genitourinary: no CVA tenderness Musculoskeletal: back normal, no calf tenderness, pelvis stable, non-tender, swelling - Left foot Neurologic: alert, motor strength/tone normal, oriented x3, sensory intact, responsive, speech normal Psychiatric: judgement/insight normal, memory normal, mood/affect normal, no suicidal/homicidal ideation Skin: no rash Lymphatic: no adenopathy Medical Decision Making PA Attestation All my diagnosis and treatment plans were reviewed ad discussed with my supervising physician Dr. Mg Diagnostic Impression: Primary Impression: Cellulitis of foot ER Course 59-year-old female with history of recurrent cellulitis of feet due to picking on them, also type 2 diabetes taking medication. Here complaining of swelling and pain in left foot x2 days. Left toe is minimally warm to touch however denies any fall or injury. Has not taken medication for symptom relief. Patient is afebrile. Denies any recent travel, cough and congestion, no other associate symptoms. Is in no apparent distress. Has not followed up with backing in machine tender yet. Ddx considered but are not limited to : Cellulitis, DVT, superficial infection, abscess Vital signs: are WNL, pt. is afebrile H&PE are most consistent with: Left foot cellulitis ORDERS: Keflex Motrin ED INTERVENTIONS: None required at this time. DISCHARGE: At this time pt. is stable for d/c to home. Will provide printed patient care instructions, and any necessary prescriptions. Care plan and follow up instructions have been discussed with the patient prior to discharge. Follow-up with backing in machine tender, take medication as directed, if worsening symptoms return to the emergency room Last Vital Signs Date Time Temp Pulse Resp B/P (MAP) Pulse Ox O2 Delivery O2 Flow Rate FiO2 01/16/20 13:42 97.7 79 16 140/73 99 Room Air Disposition: HOME, SELF-CARE Condition: Stable Scripts Ibuprofen* (MOTRIN*) 600 Mg Tablet 600 MG ORAL THREE TIMES A DAY, #30 TAB 0 Refills Prov: Shima Salazar 01/16/20 Cephalexin* (KEFLEX*) 500 Mg Capsule 500 MG ORAL EVERY 6 HOURS for 7 Days, #28 CAP Prov: Shima Salazar 01/16/20 Patient Instructions: Cellulitis, [id number] Additional Instructions: Take medication as directed, follow-up with your foot doctor, if worsening symptoms return to the emergency room Shima Salazar Jan 16, 2020 14:00
[2020-01-16] MEDS ORDERED: IBUPROFEN600 MG ORAL (14:01)
[2020-01-16] MEDS ORDERED: CEPHALEXIN500 MG ORAL (14:01)
[2020-01-16 14:40] VITALS: BP 135/72
--- NOTE | 2020-01-16 14:40 | NUR ---
ER DISCHARGE NOTE: Patient is cleared to be discharged per ERMD, pt is aox4, on room air, with stable vital signs. pt was given dc and prescription instructions, pt was able to verbalize understanding, pt id band removed. pt is able to ambulate with steady gait. pt took all belongings.
== END 2020-01-16 14:40 | disposition home or self-care (01) ==
LOC: EMR 14:00
DX: L03.116 Cellulitis of left lower limb (principal)
CPT/HCPCS: 99282

== ENCOUNTER 2020-03-26 08:25 | Emergency (ER) | payer MEDICARE, OTHER ==
[~2020-03-26] VITALS: Ht 170.2 cm; Wt 97.5 kg
[~2020-03-26 08:25] MED LIST changes: +CEPHALEXIN500 MG ORAL; +IBUPROFEN600 MG ORAL
--- NOTE | 2020-03-26 08:45 | NUR ---
ED Nurse Note: Pt came by W/C from home for R hand cellutitis. Pt states pain is 10/10. R hand has swelling and itching. Pt is alert and orientedx4, w/c bound.
[2020-03-26 08:47] VITALS: BP 120/84
[2020-03-26] MEDS ORDERED: Lidocaine 1% MPF 10mg/ml 5ml INJ ONE (09:15)
[2020-03-26] MEDS ORDERED: CELEBREX200 MG ORAL (09:51)
[2020-03-26] MEDS ORDERED: AUGMENTIN 875-1 EAC1 ORAL (09:51)
[2020-03-26] MEDS ORDERED: BACTRIM DS TAB1 EAC1 ORAL (09:53)
[2020-03-26] MEDS ORDERED: CEPHALEXIN500 MG ORAL (09:53)
[2020-03-26] MEDS ORDERED: Bacitracin Oint UD TOPIC ONE (10:00)
[2020-03-26 10:01] VITALS: BP 127/81
--- NOTE | 2020-03-26 10:03 | NUR ---
ER DISCHARGE NOTE: Patient is cleared to be discharged per ERMD, pt is aox4, on room air, with stable vital signs. pt was given dc and prescription instructions, pt was able to verbalize understanding, pt id band removed. pt took all belongings. 3 Prescriptions provided.
--- NOTE | 2020-03-26 11:10 | Emergency Room Report ---
History of Present Illness General Chief Complaint: Skin Rash/Abscess Source: Patient Present Illness HPI 59-year-old female presents with pain and swelling to right hand. States that she thinks there is an infection treated fourth and fifth fingers. Started 3 days ago. Denies any fevers or chills. Pain is throbbing, 9 out of 10, nonradiating. Denies any discharge. States she is a diabetic. No other aggravating relieving factors. 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 Patient History Past Medical History: DM, HTN, asthma, COPD Past Surgical History: none Pertinent Family History: none Social History: Denies: smoking, alcohol use, drug use Now: No Immunizations: UTD Reviewed Nursing Documentation: PMH: Agreed; PSxH: Agreed Nursing Documentation-PMH Past Medical History: No History, Except For Hx Hypertension: Yes Hx Asthma: Yes Hx COPD: Yes Hx Diabetes: Yes Hx Gastrointestinal Problems: No Hx Neurological Problems: No Review of Systems All Other Systems: negative except mentioned in HPI Physical Exam Vital Signs Date Time Temp Pulse Resp B/P (MAP) Pulse Ox O2 Delivery O2 Flow Rate FiO2 03/26/20 08:35 98.2 80 16 123/82 (96) 98 Room Air Sp02 EP Interpretation: reviewed, normal General Appearance: no apparent distress, alert, GCS 15, non-toxic Head: normocephalic Eyes: bilateral eye normal inspection, bilateral eye PERRL ENT: normal ENT inspection Neck: normal inspection Respiratory: normal inspection Cardiovascular #1: normal inspection Gastrointestinal: normal inspection Rectal: deferred Genitourinary: no CVA tenderness Musculoskeletal: back normal, normal range of motion, gait/station normal, non- tender Neurologic: alert, motor strength/tone normal, oriented x3, sensory intact, responsive, speech normal Skin: other - 2cm abscess in webspace between 4th and 5th fingers. surrounding erythema/induratin Lymphatic: normal inspection Procedures Incision and Drainage Incision and Drainage : Consent: Verbal Blade Size: 11 I & D Procedure: betadine prep, sterile drapes applied, sterile dressing applied, gauze wick placed Wound Location: upper extremity - R hand Wound's Depth, Shape: other - absecess Wound Explored: purulent discharge expressed Anesthesia: 1% Lidocaine Splint Applied?: No Sling Applied?: No Patient Tolerated: Well Complications: None Medical Decision Making Diagnostic Impression: Primary Impression: Abscess ER Course Hospital Course 59 yo F presents with pain/swelling R hand Clinical course Patient placed on stretcher. After initial history physical exam reveals middle -age female in no acute distress. Is an abscess between the fourth and fifth digits on the right hand. Surrounding erythema and induration. Full range of motion noted. Discussed case with plastics. Recommending I&D of the abscess in the webspace. I&D released purlent discharge. bacitracin/dressing applied I discussed findings with patient. Will discharge home with antibiotics. Discussed with her PMD Dr. Casillas Diagnosis - abscess Stable and discharged to home with prescription for bactrim, Keflex. wound Care instructions given. Followup with PMD. Return to ED if any signs of infection develop Last Vital Signs Date Time Temp Pulse Resp B/P (MAP) Pulse Ox O2 Delivery O2 Flow Rate FiO2 03/26/20 10:01 98.2 72 16 127/81 98 Room Air Status: improved Disposition: HOME, SELF-CARE Condition: Stable Scripts Trimethoprim/Sulfamethoxazole 160/800* (BACTRIM DS TABLET*) 1 Each Tablet 1 TAB ORAL Q12H, #14 TAB 0 Refills Prov: Soy Alejandra MD 03/26/20 Cephalexin* (KEFLEX*) 500 Mg Capsule 500 MG ORAL EVERY 6 HOURS for 7 Days, CAP Prov: Soy Alejandra MD 03/26/20 Celecoxib* (CELEBREX*) 200 Mg Capsule 200 MG ORAL DAILY for 14 Days, CAP Prov: Soy Alejandra MD 03/26/20 Patient Instructions: Abscess Soy Alejandra MD March 26, 2020 11:10
== END 2020-03-26 10:03 | disposition home or self-care (01) ==
LOC: EMR 08:50
DX: L02.511 Cutaneous abscess of right hand (principal); E11.9 Type 2 diabetes mellitus without complications; Z88.8 Allergy status to other drugs, medicaments and biological substances; I10 Essential (primary) hypertension; J44.9 Chronic obstructive pulmonary disease, unspecified
CPT/HCPCS: 99283